=== PATIENT | male | born 1960 | race Caucasian/White ===

== ENCOUNTER → 2016-05-01 | Outpatient (CLI) | payer OTHER ==
[~2016-05-01] MED LIST: ALFU10TA30 PO; ASPI-461 PO; CYAN100020 PO; FENO160T PO; INSU100I2 SC; INSUINJ12 SC; LISI-461 PO; METF1000 PO; OMEP20CA9 PO; SIMV10TA2 PO
--- NOTE | 2016-05-01 15:20 | DIAGNOSTIC IMAGING REPORT ---
CHEST 2 VIEWS ROUTINE CLINICAL HISTORY: COUGH COMPARISON STUDY: No previous studies for comparison. FINDINGS: There is a linear opacity at the left lung base which is felt to be atelectatic. A triangular opacity at the level the right cardiophrenic angle is felt to represent a fat pad. The heart is normal in size. There is no failure. There is no lobar consolidation. There are no pleural effusions.[ IMPRESSION: No active disease in the chest. Electronically signed by: Freddy Payton M.D. 05/01/2016 3:19 PM Dictated Date/Time: 05/01/2016 3:18 PM
== END | disposition home or self-care (01) ==
LOC: C.RAD1850 15:03
PROVIDERS: ATTEND Family Medicine
DX: R05 Cough (principal)

== ENCOUNTER → 2016-11-22 | Outpatient (CLI) | payer OTHER ==
[2016-11-22 18:08] LABS: ALT/SGPT 40 U/L (12-78); BLOOD UREA NITROGEN 18 mg/dl (7-18); CALCIUM 9.7 mg/dl (8.5-10.1); CARBON DIOXIDE 27 mmol/L (21-32); CHLORIDE 105 mmol/L (98-107); CHOLESTEROL 133 mg/dl (0-200); GLUCOSE 195 mg/dl (70-99); POTASSIUM 3.9 mmol/L (3.5-5.1); SODIUM 138 mmol/L (136-145); TRIGLYCERIDES 242 mg/dl (0-150); VERY LOW DENSITY LIPOPROT CALC 48 mg/dl
[2016-11-22 18:18] LABS: ALB/GLOB RATIO 1.2 (0.9-2); ALKALINE PHOSPHATASE 61 U/L (45-117); AST/SGOT 25 U/L (15-37); CHOLESTEROL/HDL RATIO 3.3; HDL CHOLESTEROL 40 mg/dl; LDL CHOLESTEROL CALCULATED 45 mg/dl
[2016-11-23 06:39] LABS: ESTIMATED AVERAGE GLUCOSE 146 mg/dl; HA1C FLAG Normal (Normal)
== END | disposition home or self-care (01) ==
LOC: C.LABMFLN 16:48
PROVIDERS: ATTEND Physician Assistant
DX: N40.1 Benign prostatic hyperplasia with lower urinary tract symptoms (principal); E11.9 Type 2 diabetes mellitus without complications

== ENCOUNTER → 2016-12-22 | Outpatient (CLI) | payer OTHER ==
[~2016-12-22] MED LIST changes: +GADAVIST IV PRN
--- NOTE | 2016-12-22 10:40 | DIAGNOSTIC IMAGING REPORT ---
MRI OF THE PROSTATE WITH AND WITHOUT CONTRAST CLINICAL HISTORY: Elevated PSA of 6.090. TECHNIQUE: Multisequence, multiplanar MR imaging of the prostate was performed before and after the administration of intravenous administration of 9.5 cc of Gadavist. Additional postprocessing was performed on a separate AFAR workstation by the radiologist for 3-D volumetric segmentation of the prostate and contouring of region(s) of interest (KORTNEY) for targeting. COMPARISON: None. FINDINGS: Prostate: The prostate measures 4.7 x 4.4 x 5.1 cm cm (DynaCAD prostate boundary segmentation volume 53.78 mL). Moderate benign prostatic hyperplasia is present. Precontrast T1 weighted imaging demonstrate no foci of enhancement T1 hyperintensity. Seminal vesicles normal. No suspicious findings are identified within the peripheral zone. Note is made of a 1.7 x 1.5 x 0.6 cm slightly T2 hypointense focus within the left posterior aspect of the transitional zone within the mid gland. Bladder: Normal. Bowel: Visualized portion of the rectum normal. Peritoneum: No free fluid in the pelvis. Lymph nodes: No lymphadenopathy in the visualized portion of the pelvis. Vasculature: Iliac vessels patent. Osseous structures: Normal bone marrow signal intensity. IMPRESSION: 1. 1.7 x 1.6 x 0.6 cm focus of subtle restricted diffusion with heterogeneous T2 signal within the left posterior aspect of the transitional zone within the mid gland. This is probably benign but indeterminate and is categorized as PI-RADS 3: Intermediate (the presence of clinically significant cancer is equivocal). 2. Moderate benign prostatic hyperplasia. Electronically signed by: Joss Tyler M.D. 12/22/2016 10:39 AM Dictated Date/Time: 12/22/2016 9:24 AM
== END | disposition home or self-care (01) ==
LOC: C.MRIBC 07:27
PROVIDERS: ATTEND Urology
DX: R97.20 Elevated prostate specific antigen [PSA] (principal)

== ENCOUNTER → 2017-06-06 | Outpatient (CLI) | payer OTHER ==
[~2017-06-06] MED LIST changes: +ALFU10TA2 PO; -ALFU10TA30 PO; -GADAVIST IV PRN
[2017-06-07 06:37] LABS: HEMOGLOBIN A1C 6.9 % (4.5-5.6)
== END | disposition home or self-care (01) ==
LOC: C.LABMFLN 14:02
PROVIDERS: ATTEND Family Medicine Adult Medicine
DX: N40.1 Benign prostatic hyperplasia with lower urinary tract symptoms (principal); E11.9 Type 2 diabetes mellitus without complications